=== PATIENT | female | born 1995 | race Caucasian/White ===

== ENCOUNTER 2025-06-03 20:17 | Emergency (ER) | payer MEDICAID ==
[~2025-06-03] VITALS: Ht 160 cm; Wt 95.3 kg
[2025-06-03] MEDS ORDERED: ONDANSETRON HCL/PF 4 MG/2 ML VIAL ONE (21:10)
[2025-06-03] MEDS ORDERED: FAMOTIDINE/PF INJ 20 MG/2 ML VIAL IV ONE (21:11)
[2025-06-03] MEDS: ONDANSETRON HCL/PF 4 MG/2 ML VIAL IVP ONE (21:15)
[2025-06-03] MEDS: IV NS 0.9% 1,000 ML BAG IV ONE (21:15)
[2025-06-03] MEDS: FAMOTIDINE/PF INJ 20 MG/2 ML VIAL IV ONE (21:15)
[2025-06-03 21:19] LABS: PLATELET COUNT (AUTO) 430 K/uL (150-450); RED BLOOD CELL COUNT(AUTO) 4.47 MIL/uL (4.0-5.2); RED CELL DISTRIBUTION WIDTH 16.6 % (11.5-15.0); WHITE BLOOD COUNT (AUTO) 12.9 K/uL (4.3-11.0)
[2025-06-03 21:22] LABS: APPEARANCE,URINE CLEAR (CLEAR); BLOOD, URINE 1+ Ery/uL (NEGATIVE); LEUKOCYTE ESTERASE ,URINE 1+ (NEGATIVE); NITRITE, URINE POSITIVE (NEGATIVE); UGLUCOSE NEGATIVE (NEGATIVE)
[2025-06-03 21:23] LABS: PREGNANCY TEST URINE QUAL NEGATIVE (NEGATIVE)
[2025-06-03 21:32] LABS: CALCIUM, SERUM 8.2 mg/dL (8.5-10.1); CREATININE 0.9 mg/dL (0.6-1.3); SODIUM SERUM 142.0 mmol/L (136-145); UREA NITROGEN, BLOOD 16.0 mg/dL (7-18)
[2025-06-03 21:39] LABS: ADD URINE CULTURE YES
[2025-06-03 21:39] LABS: ASPARTATE AMINOTRANSFERASE 15.0 U/L (15-37); TOTAL PROTEIN, SERUM 7.9 g/dL (6.4-8.2)
[2025-06-03] MEDS ORDERED: METOCLOPRAMIDE HCL 10 MG/2 ML VIAL ONE (21:57)
[2025-06-03] MEDS: METOCLOPRAMIDE HCL 10 MG/2 ML VIAL IV ONE (22:01)
[2025-06-03] MEDS ORDERED: METO-295 PO (22:22)
[2025-06-03] MEDS ORDERED: CEPH-570 PO (22:22)
[2025-06-03 22:51] VITALS: BP 105/61; TEMP 98; O2SAT 97
== END 2025-06-03 22:55 | disposition home or self-care (01) ==
LOC: ER 20:23
DX: N39.0 Urinary tract infection, site not specified (principal); K52.9 Noninfective gastroenteritis and colitis, unspecified; Z88.0 Allergy status to penicillin
CPT/HCPCS: 99284; 96374; 96375; 96361; 85025; 80048; 87086; 83690; 80076; 84703; 81001; 36415; J1308; J2765; J2405; J7030